=== PATIENT | female | born 1990 | race Caucasian/White ===

== ENCOUNTER 2016-11-07 19:34 | Emergency (ER) | payer OTHER | END 2016-11-07 22:43 | disposition left against medical advice (07) | LOC: ER1 19:34 | DX: Z53.21 Procedure and treatment not carried out due to patient leaving prior to being seen by health care provider (principal) ==

== ENCOUNTER 2020-12-12 12:35 | Emergency (ER) | payer OTHER ==
[~2020-12-12 12:35] MED LIST: CIPRO500 MG PO; MUPIROCIN22 GM TP
[2020-12-12] MEDS ORDERED: PREDNISONE10 MG PO (14:29)
[2020-12-12] MEDS ORDERED: CEFUROXIME500 MG PO (14:29)
[2020-12-12] MEDS ORDERED: ONDANSETRON ODT4 MG SL (14:29)
[2020-12-12] MEDS ORDERED: ZYRTEC10 M3 PO (14:29)
== END 2020-12-12 14:43 | disposition home or self-care (01) ==
LOC: ER1 12:35
DX: L23.7 Allergic contact dermatitis due to plants, except food (principal); H60.92 Unspecified otitis externa, left ear; J40 Bronchitis, not specified as acute or chronic; N39.0 Urinary tract infection, site not specified; F17.200 Nicotine dependence, unspecified, uncomplicated
CPT/HCPCS: 81001; 84703; 87077; 87086; 87186; 96372; 99283; J2930